=== PATIENT | female | born 1970 | race Two or more races ===

== ENCOUNTER 2022-03-18 09:52 | Outpatient (REF) | payer OTHER, SELFPAY ==
--- NOTE | ~2022-03-18 | XR_ITS ---
EXAMINATION: XR chest 2V CLINICAL INFORMATION: Reason for Exam E66.01 - Morbid (severe) obesity due to excess calories COMPARISON: None TECHNIQUE: 2 views of the chest FINDINGS: Clear lungs. No pneumothorax or pleural effusion. Normal cardiomediastinal silhouette. XR/XR chest 2V Impression: * Clear lungs.
[2022-03-18 11:27] LABS: MANUAL DIFF FLAG NO
--- NOTE | 2022-03-18 11:37 | ECG_ITS ---
Test Reason : OBESITY Blood Pressure : / mmHG Vent. Rate : 071 BPM Atrial Rate : 071 BPM P-R Int : 130 ms QRS Dur : 086 ms QT Int : 404 ms P-R-T Axes : 014 036 023 degrees QTc Int : 439 ms Normal sinus rhythm Normal ECG No previous ECGs available Referred By: Obed Sanz Electronically Signed By:KENZIE FOREMAN MD
[2022-03-18 11:46] LABS: Basophils Absolute Auto 0.1 X10*3/uL (0.0-0.2); Basophils Percent Auto 0.5 % (0-2); Eosinophils Absolute Auto 0.4 X10*3/uL (0.0-0.4); Eosinophils Percent Auto 3.9 % (0-4); Hematocrit 37.2 % (37.0-47.0); Hemoglobin 12.1 g/dl (12.0-16.0); Imm Gran Abs Auto 0.04 X10*3/uL (0.00-0.03); Imm Gran Pct Auto 0.4 % (0.0-0.4); Lymphocytes Percent Auto 26.5 % (20-40); Mean Corpuscular HGB Conc 32.5 g/dl (31.0-35.0); Mean Corpuscular Hemoglobin 24.4 pg (27.0-33.0); Mean Platelet Volume 9.6 fL (9.4-12.3); Monocytes Absolute Auto 0.6 X10*3/uL (0.1-1.2); Monocytes Percent Auto 5.5 % (2-11); Neutrophils Absolute Auto 7.2 x10*3/uL (2.0-8.3); Neutrophils Percent Auto 63.2 % (45-73); Platelet Count 453 X10*3/uL (160-400); Red Blood Count 4.96 X10*6/uL (4.20-5.50); Red Cell Distribution Width 15.1 % (11.0-16.0); White Blood Count 11.4 X10*3/uL (4.8-10.8)
[2022-03-18 11:47] LABS: Estimated Average Glucose 108 mg/dL; Hemoglobin A1c % 5.4 %
[2022-03-18 12:37] LABS: Alanine Aminotransferase 25 U/L (0-31); Albumin Level 4.4 g/dL (3.5-5.0); Alkaline Phosphatase 54 U/L (39-117); Anion Gap 16 (12-20); Aspartate Amino Transferase 24 U/L (5-31); Bilirubin Total 0.6 mg/dL (0.0-1.0); Blood Urea Nitrogen 17 mg/dL (9-16); C Reactive Protein 3.29 mg/dL (< or = 0.50); Calcium 9.9 mg/dL (8.4-10.2); Carbon Dioxide 28 mmol/L (22-29); Chloride 98 mmol/L (96-108); Cholesterol 126 mg/dL; Estimated Glomerular Filt Rate > 60; Glucose Random 86 mg/dL (60-115); HDL Cholesterol 48 mg/dL; Iron 42 mcg/dL (30-160); LDL Cholesterol Calculated 69 mg/dl; Percent Iron Saturation 12 % (15-50); Potassium 4.1 mmol/L (3.3-5.1); Sodium 138 mmol/L (135-145); Total Iron Binding Capacity 364 mcg/dL (228-428); Total Protein 8.7 g/dL (6.5-8.0); Triglycerides 49 mg/dL; Unsaturated Iron Binding 322 ug/dL
[2022-03-18 12:41] LABS: Ferritin 67 ng/mL (10-250); TSH reflex Free T4 0.86 uIU/mL (0.32-4.0); Vitamin D 25-OH Total 17.5 ng/mL (>30)
[2022-03-18 13:01] LABS: Folate 14.7 ng/mL (> or = 4.0); Vitamin B12 420 pg/mL (200-900)
[2022-03-18 13:14] LABS: Insulin 21 uU/mL (2-29)
[2022-03-20 13:07] LABS: Calcium (PTHI) 9.8 mg/dL (8.6-10.4); PTHI 36 pg/mL (16-77)
[2022-03-22 22:12] LABS: Zinc 63 mcg/dL (60-130)
[2022-03-24 00:43] LABS: Vitamin A 32 mcg/dL (38-98)
[2022-03-25 13:47] LABS: Vitamin B1 9 nmol/L (8-30)
== END 2022-03-18 09:53 | disposition home or self-care (01) ==
LOC: HO.XRAY 09:52
PROVIDERS: PCP Internal Medicine; Visit Provider Physician Assistant Surgical
DX: E66.01 Morbid (severe) obesity due to excess calories (principal)
CPT/HCPCS: 36415; 71046; 80053; 80061; 82306; 82607; 82728; 82746; 83036; 83525; 83540; 83970; 84425; 84443; 84590; 84630; 85025; 86140; 93005

== ENCOUNTER → 2022-03-22 14:00 | Outpatient (BNVA) | payer OTHER, SELFPAY | PROVIDERS: PCP Internal Medicine; Visit Provider Counselor Mental Health | DX: F43.20 Adjustment disorder, unspecified (principal); E66.01 Morbid (severe) obesity due to excess calories | CPT/HCPCS: 90791 ==

== ENCOUNTER → 2022-04-20 10:19 | Outpatient (BNVA) | payer OTHER, SELFPAY | PROVIDERS: PCP Internal Medicine; Visit Provider Dietitian, Registered | DX: E66.01 Morbid (severe) obesity due to excess calories (principal) | CPT/HCPCS: 97802 ==

== ENCOUNTER 2022-05-02 07:52 | Outpatient (REF) | payer OTHER, SELFPAY ==
--- NOTE | ~2022-05-02 | FL_ITS ---
EXAMINATION: XR FLUOROSCOPY UPPER GI WITH AIR CLINICAL INFORMATION: Morbid (severe) obesity due to excess calories. COMPARISON: None TECHNIQUE: Routine upper GI air-contrast study was performed. FINDINGS: Following oral administration of thick barium and effervescent granules, there is normal propagation of bolus from the oral cavity through the pharynx, esophagus into stomach without any evidence of obstruction, narrowing or stricture. The course, caliber and peristalsis of the stomach, duodenal bulb and the sweep is normal. The mucosal pattern of the stomach, duodenal bulb and the sweep is normal. No gastroesophageal reflux or hiatal hernia seen. FLUOROSCOPY TIME: 1.1 minutes DOSE AREA PRODUCT: 40.779 uGy-m2 (microgray-meter squared) FL/FL upper GI w air IMPRESSION: Unremarkable upper GI air-contrast study.
--- NOTE | ~2022-05-02 | US_ITS ---
EXAMINATION: US COMPLETE ABDOMEN WITH LIVER ELASTOGRAPHY CLINICAL INFORMATION: Morbid to severe obesity due to excess calories. COMPARISON: None. TECHNIQUE: Real-time imaging of the abdominal viscera. Noninvasive ultrasound liver fibrosis assessment is performed using Abeba ElastPQ point quantification shear wave elastography (2D-SWE) with a C5-2 MHz transducer. Multiple elastography samples are obtained. FINDINGS: PANCREAS: The tail of the pancreas is not visualized. The visualized pancreatic head and body are normal in appearance. The remainder of the pancreas is obscured from visualization by the overlying bowel gas. ABDOMINAL AORTA: The proximal, middle, and distal aortic segments are normal in caliber. INFERIOR VENA CAVA: The IVC is slightly prominent. LIVER: The liver demonstrates normal size, contour and increased echogenicity. No focal lesion or intrahepatic biliary duct dilatation. The right lobe measures 18.5 cm in length. The left lobe measures 11.7 cm in length. Portal flow is hepatopedal. Shear wave liver elastography median stiffness is 1.77 m/s (reference: normal median stiffness is 1.3 m/s or less). IQR/median stiffness to assess sampling precision is 0.05 (reference: good quality data set is IQR/median stiffness of 0.15 or less). GALLBLADDER: There are multiple nonmobile echogenic polyps without wall thickening. The largest polyp measures 0.7 x 0.7 x 0.5 cm. There are smaller hypoechoic areas along the gallbladder wall at the fundus suspicious for adenomyomatosis. COMMON BILE DUCT: Normal in caliber measuring 0.4 cm in diameter. RIGHT KIDNEY: Normal. No hydronephrosis. No renal calculi or focal parenchymal lesions. The kidney measures 13.0 cm in maximum dimension. LEFT KIDNEY: Normal. No hydronephrosis. No renal calculi or focal parenchymal lesions. The kidney measures 13.5 cm in maximum dimension. SPLEEN: Enlarged. The spleen measures 13.9 cm in maximum dimension. FREE FLUID: None. US/US abdomen comp w elastography IMPRESSION: 1. Multiple nonmobile echogenic polyps, the largest measuring 7 mm. Mild hepatic steatosis without focal lesion. 2. Mild splenomegaly. 3. Liver elastography: Median liver stiffness 1.77 m/s suggestive of normal findings. REFERENCE: Society of Radiologists in Ultrasound Liver Stiffness Thresholds (2020): LIVER STIFFNESS THRESHOLDS: *Liver Stiffness equal or less than 1.3 m/s: High probability of being normal. *Liver Stiffness less than 1.7 m/s: In the absence of other known clinical signs, rules out compensated advanced chronic liver disease. *Liver Stiffness 1.7-2.1 m/s: Suggestive of compensated advanced chronic liver disease but need further test for confirmation. *Liver Stiffness over 2.1 m/s: Rules in compensated advanced chronic liver disease. *Liver Stiffness over 2.4 m/s: Suggestive of clinically significant portal hypertension. QUALITY OF DATA SET: *IQR/Median value equal or less than 0.15 implies a quality data set. *IQR/Median value over 0.15 implies a poor quality data set. SIGNIFICANT CHANGE FROM PRIOR EXAM: Significant change if liver stiffness measurement is 10% or greater from prior exam. OTHER CONSIDERATIONS: The stage of liver fibrosis may be overestimated in the setting of acute hepatitis, liver inflammation, elevated liver function tests, hepatic vascular congestion, obstructive cholestasis, non-fasting state, and infiltrative diseases such as amyloidosis and lymphoma. In some patients with NAFLD, the liver stiffness thresholds for compensated advanced chronic liver disease may be lower. In causes other than viral hepatitis and NAFLD, liver stiffness thresholds are not well established.
== END 2022-05-02 07:53 | disposition home or self-care (01) ==
LOC: HO.US 07:52
PROVIDERS: Visit Provider Physician Assistant Surgical
DX: E66.01 Morbid (severe) obesity due to excess calories (principal)
CPT/HCPCS: 74246; 76705; 76981

== ENCOUNTER → 2022-05-20 09:01 | Outpatient (BNVA) | payer OTHER, SELFPAY | PROVIDERS: Visit Provider Physician Assistant Surgical | DX: E66.01 Morbid (severe) obesity due to excess calories (principal) ==

== ENCOUNTER → 2022-06-17 09:15 | Outpatient (BNVA) | payer OTHER, SELFPAY | PROVIDERS: Visit Provider Physician Assistant Surgical | DX: Z13.89 Encounter for screening for other disorder (principal) ==

== ENCOUNTER 2024-11-13 10:43 | Outpatient (AMB) | payer OTHER, SELFPAY ==
--- NOTE | 2024-11-13 10:51 | MHC.OFFVIS ---
Vital Signs 11/13/24 10:52 Height 5 ft 7 in Weight 265 lb BMI 41.5 BP 106/56 L Blood Pressure Location Rt brachial Position Sitting Respiration 18 Pulse 74 Pulse Source Pulse Oximeter Pulse Oximetry (%) 96 Oxygen Delivery Method Room Air Intake Visit Reasons: Chronic pain syndrome Intake Note: Most pain Lower back and Left Hip leg. Hand Braille Transcriber Required: No Allergies penicillin V Allergy (Severe, Verified 11/13/24 10:55) rash, itching acetaminophen (From Percocet) Adverse Reaction (Mild, Verified 11/13/24 10:55) Hallucinations oxycodone (From Percocet) Adverse Reaction (Mild, Verified 11/13/24 10:55) Hallucinations HPI Comments Details: The patient is a 54-year-old female presenting with chronic pain, primarily due to back discomfort following prolonged steroid use for Giant Cell Arteritis (GCA). After a significant period on oral steroids, she developed adrenal insufficiency, leading to acute kidney injury and resulting in any exacerbation of her pain profile. The patient notes an aggravation of pain during specific activities such as standing, extended sitting, and significant leg weakness due to the lumbar disc protrusion with potential nerve root impingement. Despite surgical suggestions, she remains hesitant and prefers conservative management strategies, including physical therapy and non-steroidal treatment. She does endorse feeling weakness and occasionally her left leg will give out while she is standing. Mostly uses a cane for ambulation though at times will use a walker. Denies red flag symptoms including new loss of bowel, bladder or saddle anesthesia. Recent MRI from last year was reviewed on her phone Neurosurgical note reviewed dated 06/19/2024. The patient was surgery for L4-5 disc herniation but she declined stating she was not ready to proceed with surgical management at this time. - Onset and Timing: Chronic pain exacerbated post steroid use for GCA. - Quality and Character: Persistent, radiating, arduous pain when standing or after prolonged sitting. - Primary Location: Lumbar region with radiation to left lateral thigh into the left calf. - Exacerbating Activities: Standing, prolonged sitting, movement, long flights, and physical exertion. - Relieving Factors: Partial relief from pregabalin; avoidance of extensive physical activities. - Functional Interference: Disrupts daily activities, significantly walking and standing. - Affect: Pain impacts physical and emotional wellbeing; concerns about aging and mobility limitations. - Analgesia: Currently on pregabalin; experiencing moderate relief, significant worsening without medication. - Adverse Effects: Steroid-related complications, including adrenal insufficiency, kidney injury. - Activities of Daily Living: Limited mobility, residential constraints (stairs), requires walker/cane. - Aberrant Drug Related Behaviors: None reported; medication use as directed. [facility] Surgical History Hx of biopsy Hx of section Hx of hysterectomy Hx of thyroidectomy Family History Mother Hypertension Hypothyroid Father Hypertension Diabetes Son No problems noted. Brother Diabetes Hypothyroid Brother Diabetes Social History Alcohol intake: current Alcohol intake frequency: holidays/special occasions only Patient Tobacco Use Status: Never used Tobacco Review of Systems Const Details: - Musculoskeletal: Reports chronic back pain, left thigh pain, and limb weakness. - Nervous System: Reports weakness in the left leg. - Gastrointestinal: No symptoms noted. - Renal: History of acute kidney injury. - Endocrine: Adrenal insufficiency. - General: Denies fever. Physical Exam Vital Signs: Last Vital Signs Pulse 74 11/13/24 10:52 Resp 18 11/13/24 10:52 BP 106/56 L 11/13/24 10:52 Pulse Ox 96 11/13/24 10:52 Oxygen Delivery Method Room Air 11/13/24 10:52 BMI result Body Mass Index 41.5 General: awake, alert, oriented. Answers questions appropriately. Fully engaged in examination. Skin: warm, dry, intact HEENT: Normocephalic. Hearing intact. Cardiac: External chest normal in appearance. Respiratory: No cough, audible wheezing or stridor. Abdomen: without gross distension. MS: No obvious swelling or deformities. Able to stand on bilateral tiptoes and bilateral heels though with some difficulty with balance.? Able to transition from sit to stand unassisted. Ambulates with bilaterally normal heel strike and toe off SLR positive on the left Bilateral lower extremity strength 4/5 Tenderness over midline lumbar vertebrae and lumbar paraspinal muscles Valsalva negative Negative footdrop, negative clonus Neurological: Oriented to person, place, time and situation. Thought process intact. Ambulates with the use of a cane Psychiatric: Appropriate mood and affect. Good judgment and insight. Results Reviewed Results Reviewed: - Imaging: MRI of lumbar spine from March 2024; L4-5 disc protrusion with potential L5 nerve impingement, degenerative changes at L5-S1. Assessment & Plan Assessment & Plan (1) Lumbar radiculopathy: Code(s): M54.16 - Radiculopathy, lumbar region Category: Medical (2) Degenerative disc disease, lumbar: Code(s): M51.369 - Other intervertebral disc degeneration, lumbar region without mention of lumbar back pain or lower extremity pain Category: Medical (3) Lumbar disc herniation: Code(s): M51.26 - Other intervertebral disc displacement, lumbar region Category: Medical (4) Chronic pain syndrome: Code(s): G89.4 - Chronic pain syndrome Category: Medical Plan The management of this patient's chronic pain and lumbar disc protrusion involves a conservative approach through physical therapy and non-steroidal epidural injection pending insurance approval. These measures aim to provide symptom relief, strengthen core muscles, and alleviate pressure from the affected lumbar region. Further consultation with the neurosurgeon to explore surgical options should be considered, bearing in mind the potential benefits and limitations. It's imperative to continuously monitor and adjust treatment in light of her past steroid complications and current renal health. I discussed with the patient her primary diagnosis of lumbar disc protrusion and related complications from past steroid use for GCA. We explored her chronic pain management options, including initiating physical therapy to improve strength and function. I advised on the potential use of epidural injection without steroids for symptomatic relief and the merits and risks of pursuing surgical intervention in the future. Emphasis was placed on the necessity to avoid NSAIDs due to renal concerns. I outlined the benefits of each approach, clarifying the short and long-term outcomes, and recommended coordinating care with physical therapy services closer to her residence. We also reviewed the importance of maintaining close communication with her medical team for ongoing evaluation of her kidney function. Patient was informed and verbally consented to the use of an ambient scribe for clinic note documentation during this visit. Patient Instructions: - Begin physical therapy at a location near home to strengthen core muscles. - Continue off steroids and avoid NSAIDs for kidney protection. - Use cane or walker as needed to prevent falls and support mobility. - Seek medical attention if experiencing worsening pain or any fall incidents. - Follow up with primary care and specialists for ongoing management of GCA and adrenal health. Coding Level of Care Code New Pt Level 4 (49313) Complex EM visit Add On G2211 Diagnoses Lumbar radiculopathy M54.16 Degenerative disc disease, lumbar M51.369 Lumbar disc herniation M51.26 Chronic pain syndrome G89.4
[2024-11-13 10:52] VITALS: BP 106/56; PULSE 74; RESP 18; O2SAT 96; BMI 41.5
--- OUTSIDE RECORDS SUMMARY | 2024-11-13 12:17 | XMS_ITS | Patient Health Record ---
Author Organization [employer] [facility] Address [address] [facility] [address] [place] [address] Care Team Providers Care Biochemist Name Role Phone KATELIN MOULTON Unavailable [phone] Reason For Referral No Information Medications Medication SIG (Take, Route, Frequency, Duration) Notes Start Date End Date Status Betamethasone Dipropionate 0.05% 1 External twice each day for -3 [facility] 03/13/2014 Active hydroCHLOROthiazide 12.5MG 1 ORAL daily for -3 [facility] Active Synthroid 75MCG 1 ORAL daily for -3 [facility] 07/30/2013 Active Terazol 7 0.4% 1 Vaginal once daily for -3 [facility] 03/13/2014 Active Toprol XL 25MG 1 ORAL daily for -3 [facility] 07/30/2013 Active Problems Problem Type SNOMED Code ICD Code Onset Dates Problem Status W/U Status Risk Notes Problem Hypothyroidism (22023924) Unspecified hypothyroidism (244.9) Active confirmed Major Problem Right lower quadrant pain (046964109) Abdominal pain, right lower quadrant (789.03) Active confirmed Diag Plan Of Treatment Next Appt Details Provider Name:KATELIN Joann Kee, 04/01/2025 09:30:00 AM, [address], [address], [place], [address], Insurance Providers Payer Name Payer Address Payer Phone Subscriber Number Group Number Insured Name Patient Relationship to Insured Coverage Start Date Coverage End Date [facility] [address] [facility] [address] [place] [address] [id number] LANCE GODWIN Self - patient is the insured
== END 2024-11-13 11:53 | disposition home or self-care (01) ==
LOC: HO.PMC 10:43
PROVIDERS: PCP Internal Medicine; Referring Provider Internal Medicine; Visit Provider Registered Nurse Emergency
DX: M54.16 Radiculopathy, lumbar region (principal); M51.369 Other intervertebral disc degeneration, lumbar region without mention of lumbar back pain or lower extremity pain; M51.26 Other intervertebral disc displacement, lumbar region; G89.4 Chronic pain syndrome
CPT/HCPCS: 99204

== ENCOUNTER 2025-01-14 07:35 | Outpatient (REF) | payer OTHER, MEDICAID, SELFPAY ==
--- OUTSIDE RECORDS SUMMARY | 2025-01-14 07:37 | XMS_ITS | Patient Health Record ---
Author Organization [facility] Address [address] [place] [address] Care Team Providers Care Skin Pass Operator Name Role Phone KATELIN MOULTON Unavailable [phone] Reason For Referral No Information Medications Medication SIG (Take, Route, Frequency, Duration) Notes Start Date End Date Status Betamethasone Dipropionate 0.05% 1 External twice each day; Duration: -3 [facility] 03/13/2014 Active hydroCHLOROthiazide 12.5MG 1 ORAL daily; Duration: -3 [facility] 03/13/2014 Active Synthroid 75MCG 1 ORAL daily; Duration: -3 [facility]- 07/30/2013 Active Terazol 7 0.4% 1 Vaginal once daily ; Duration: -3 [facility] 03/13/2014 Active Toprol XL 25MG 1 ORAL daily; Duration: -3 [facility]- 07/30/2013 Active Problems Problem Type SNOMED Code ICD Code Onset Dates Problem Status W/U Status Risk Notes Problem Hypothyroidism (25171014) Unspecified hypothyroidism (244.9) Active confirmed Major Problem Right lower quadrant pain (954316934) Abdominal pain, right lower quadrant (789.03) Active confirmed Diag Plan Of Treatment Next Appt Details Provider Name:KATELIN IBARRA Vidhya, 04/01/2025 09:30:00 AM, [address] [facility] [address], [address], [place], [address], Insurance Providers Payer Name Payer Address Payer Phone Subscriber Number Group Number Insured Name Patient Relationship to Insured Coverage Start Date Coverage End Date [facility] [address] [place], [place] [id number] LANCE GODWIN Self - patient is the insured 5
--- OUTSIDE RECORDS SUMMARY | 2025-01-14 07:37 | XMS_ITS | Encounter Summary ---
Author Organization [facility] Address [address] [place] [address] Phone Care Team Providers Care Cloth Weigher Name Role Phone Sara Da Silva MD Primary Care Provider [phone] Encounter Details Date Type Department Care Team (Late st Contact Info) Description 04/15/2024 Procedure Pass [facility] [address] [place] [address] Social History Tobacco Use Types Packs/Day Years Used Date Smoking Tobacco: Never Smokeless Tobacco: Never Alcohol Use Standard Drinks/Week Comments Not Currently 0 (1 standard drink = 0.6 oz pur e alcohol) Child or Family Care Answer Date Record ed Do you have problems with on e of the following making it difficult for you to work, study, or receive health care? No 09/19/2023 Education Answer Date Recorded Are you interested in help w ith more adult education (for example, completing high school, GED, job training, learning the [place] language, technical skills, or developing parenting skills)? No 09/19/2023 Are you concerned about learning? Not on file 09/19/2023 No 09/19/2023 Yes 09/19/2023 Food Answer Date Recorded Within the past 6 months we worried whether our food would run out before we got money to buy more. Never True 04/10/2024 Within the past 6 months the food we bought just didn't last and we didn't have enough money to get more. Never True 11/13/202 4 Residential Stability Answer Date Recor ded What is your housing situation today? I have rachael godinez 04/10/2024 How many times have you move d in the past 12 months? Zero (I did not move) 04/10/2024 Paying for Meds Answer Date Recorded Do you have trouble paying for medicines? No 04/10/2024 Paying Utility Bills Answer Date Record ed Do you have trouble paying your heating or elect ricity bill? No 04/10/2024 Transportation Answer Date Recorded Has the lack of transportati on kept you from medical appointments or from getting medications? No 04/10/2024 Digital Access Answer Date Recorded No 04/10/2024 Yes 04/10/2024 Do you have reliable internet access at home? Ye s 04/10/2024 Do you have a device (e.g., phone, tablet, computer) with a working camera? Yes 04/10/2024 Intimate Partner Violence Answer Date R ecorded Are you denied basic needs s uch as food, clothing, or medical care? No 04/10/2024 In the past 12 months have y ou been in a relationship with a person who hurts, threatens, or tries to control you? No 04/10/2024 Are you denied basic needs s uch as food, clothing, or medical care? No 04/10/2024 In the past 12 months have y ou been in a relationship with a person who hurts, threatens, or tries to control you? No 04/10/2024 Comments Unknown Sex and Gender Information Value Date Recorded Sex Assigned at Female 01/03/2023 1:45 PM EDT Legal Sex Female 1:43 PM EDT Gender Identity Female 01/03/2023 1:45 PM EDT Sexual Orientation Straight 01/03/2023 1: 45 PM EDT documented as of this encounter Plan of Treatment Upcoming Encounters Date Type Department Care Team (Late st Contact Info) Description 02/13/2025 4:00 PM EDT Office Visit [facility] [address] [place] [address] [place] [address] Gladis Bethea MD, M[facility] [address] [place] [address] [email or web address] documented as of this encounter Visit Diagnoses Not on filedocumented in this encounter Care Teams Cloth Weigher Relationship Specialty Start Date End Date Sara Da Silva MD [address] [place] [phone] PCP - General Internal Medicine 01/03/23 documented as of this encounter Additional Source Comments The information contained in this document represents components of the legal health record. It is not the complete legal health record.[facility]
== END 2025-01-14 07:36 | disposition home or self-care (01) ==
LOC: CF 07:35
PROVIDERS: Visit Provider Anesthesiology
DX: Z13.89 Encounter for screening for other disorder (principal)
CPT/HCPCS: J2003; J2795; Q9967